=== PATIENT | female | born 1980 | race Two or more races ===

== ENCOUNTER 2016-11-10 18:38 | Emergency (ER) | payer OTHER ==
[2016-11-10] MEDS ORDERED: IOPAMIDOL 370 (76%) 100 ML VIAL IV ONE (18:39)
[2016-11-10] MEDS ORDERED: MORPHINE SULFATE 4 MG/ML SYRINGE ONE (19:36)
[2016-11-10] MEDS ORDERED: ONDANSETRON 4 MG/2ML 2 ML VIAL ONE (19:36)
[2016-11-10] MEDS ORDERED: SODIUM CHLORIDE 0.9% 1,000 ML ONE (19:36)
[2016-11-10 20:05] LABS: ABSOLUTE NEUTROPHIL COUNT 7.5 K/mm3 (1.8-7.7); BASO % 0.2 % (0.2-1.0); EOS # 0.1 (0.0-0.5); EOS % 0.9 % (0.9-2.9); HEMATOCRIT 41.6 % (37.0-47.0); HEMOGLOBIN 13.9 gm/l (12.0-16.0); IMM NEUT% 0.3 % (0-1); LYMPH % 37.5 % (15-45); MEAN CELL VOLUME 86.1 fl (81.0-99.0); MEAN CORPUSCULAR HEMOGLOBIN 28.8 pg (27.0-31.0); MEAN CORPUSCULAR HGB CONC 33.4 g/dl (33.0-37.0); MEAN PLATELET VOLUME 10.9 fl (7.4-10.4); MONO # 0.6 (0.0-0.8); MONO % 4.8 % (4-12); NEUT % 56.3 % (43-75); PLATELET COUNT 301 K/mm3 (130-400); RED CELL DISTRIBUTION WIDTH 12.9 % (11.5-14.5)
[2016-11-10 20:12] LABS: PH,URINE 6.5 (5.0-8.0); URINE BILIRUBIN NEGATIVE (NEGATIVE); URINE BLOOD NEGATIVE (NEGATIVE); URINE GLUCOSE (UA) NEGATIVE (NEGATIVE); URINE LEUKOCYTE ESTERASE NEGATIVE (NEGATIVE); URINE NITRITE NEGATIVE (NEGATIVE); URINE PROTEIN NEGATIVE (NEGATIVE); URINE UROBILINOGEN NORMAL (0-1 mg/dl)
[2016-11-10 20:21] LABS: HCG,QUALITATIVE URINE NEGATIVE
[2016-11-10 20:28] LABS: ALB/GLOB RATIO 1.3 (>1.0); ALBUMIN 4.3 gm/dL (3.5-5.7); CALCIUM 9.4 mg/dL (8.6-10.3)
[2016-11-10 20:32] LABS: URINE APPEARANCE CLEAR; URINE COLOR YELLOW
--- NOTE | 2016-11-10 20:52 | CT ---
Exam Type: ABD/PELVIS W/ CON Date and Time: 11/10/2016 7:18 PM Clinical information: History of ovarian cyst with right lower quadrant pain. Comparison: None Procedure: Imaging device: [employer] Aquilion [address] scanner 1 mm axial images were obtained through the abdomen and pelvis. Stacked reconstructed 3, 4 and 5 mm images were photographed in the axial coronal and sagittal planes. No oral contrast was utilized for this examination. 100 ml of Isovue-370 was injected intravenously. Exam: with intravenous contrast. FINDINGS: Lung bases: There is a small focus of linear scarring identified within the right pulmonary base. No effusion or pneumothorax is visualized. The heart size is appropriate. Liver: There is a faint hypervascular focus identified within the central right hepatic lobe measuring 1.8 x 2.6 cm in size which may reflect a vascular malformation or primary hepatic mass such as a hepatic hemangioma. Spleen: The spleen is homogeneous and does not appear to be enlarged. Gallbladder: Normal without enlargement or evidence of adjacent inflammatory changes. Pancreas: Normal without enlargement or evidence of adjacent inflammatory changes. Adrenal glands: Normal without enlargement or evidence of adjacent inflammatory changes. Abdominal aorta: The aorta is of normal caliber and appears to be without significant atherosclerotic disease. Kidneys: The kidneys appear to be symmetric in size with no perinephric inflammatory changes are identified. No current findings of hydronephrosis are seen. Bowel structures: The visualized bowel is of normal caliber without evidence of dilatation or obstruction. No free fluid or mesenteric inflammatory changes are identified. Appendix: The appendix is well-visualized and appears to be of normal caliber. No periappendiceal inflammatory changes or CT findings of appendicitis are currently observed. Bladder: The bladder is of normal contour. No wall thickening or significant distention is observed. Hernia: No abdominal wall or inguinal hernia is visualized on this examination. Adenopathy: There is central mesenteric adenopathy, several which appear to be densely calcified. Osseous structures: No discrete osseous abnormalities are identified. Pelvic structures: There is the suggestion of a 1.9 cm right adnexal cyst with small amount of adjacent free fluid. IMPRESSION: 1. A normal appearance of the appendix without CT evidence of appendicitis. 2. A suggested 1.9 cm likely right adnexal cyst with a small amount of adjacent free fluid. 3. Central mesenteric adenopathy several of which appear to be densely calcified 4. A suggested vague 2.6 cm hypervascular mass within the central aspect of the right hepatic lobe. This may reflect a vascular malformation or possibly a primary hepatic mass such as an hemangioma. Multiphasic CT imaging or MRI of the liver may be obtained for further evaluation.
== END 2016-11-10 21:36 | disposition home or self-care (01) ==
LOC: ED 18:38
DX: N83.201 Unspecified ovarian cyst, right side (principal); R10.31 Right lower quadrant pain; R11.0 Nausea; I10 Essential (primary) hypertension
CPT/HCPCS: 83605; 83690; 81025; 85025; 80053; 81003; 74177; 96375; 99283; 96374; 96361 ×2; 99284; J2270; J2405; J7030; Q9967